=== PATIENT | female | born 1985 | race African-American/Black ===

== ENCOUNTER 2018-06-17 16:48 | Emergency (ER) | payer MEDICAID ==
[~2018-06-17] VITALS: Ht 154.9 cm; Wt 57.6 kg
[2018-06-17 17:15] VITALS: BP 118/92; Ht 154.9 cm; Wt 57.6 kg
== END 2018-06-17 17:53 | disposition home or self-care (01) ==
LOC: ED 16:48
DX: R06.2 Wheezing (principal)
CPT/HCPCS: J7613

== ENCOUNTER 2018-08-28 02:09 | Emergency (ER) | payer SELFPAY ==
[~2018-08-28] VITALS: Ht 157.5 cm; Wt 55.3 kg
[2018-08-28 02:14] VITALS: BP 137/91; Ht 157.5 cm; Wt 55.3 kg
== END 2018-08-28 04:05 | disposition home or self-care (01) ==
LOC: ED 02:09
DX: T74.21XA Adult sexual abuse, confirmed, initial encounter (principal); J45.909 Unspecified asthma, uncomplicated; Z11.3 Encounter for screening for infections with a predominantly sexual mode of transmission
CPT/HCPCS: 87491; 87591

== ENCOUNTER 2018-09-03 18:17 | Emergency (ER) | payer SELFPAY ==
[~2018-09-03] VITALS: Ht 154.9 cm; Wt 54.9 kg
[2018-09-03 18:33] VITALS: BP 119/82; Ht 154.9 cm; Wt 54.9 kg
== END 2018-09-03 20:21 | disposition left against medical advice (07) ==
LOC: ED 18:17
DX: Z53.21 Procedure and treatment not carried out due to patient leaving prior to being seen by health care provider (principal)
CPT/HCPCS: 87491; 87591

== ENCOUNTER 2018-09-29 03:25 | Emergency (ER) | payer SELFPAY ==
[~2018-09-29] VITALS: Ht 154.9 cm; Wt 54.0 kg
[2018-09-29 03:30] VITALS: Ht 154.9 cm; Wt 54.0 kg
[2018-09-29 05:57] VITALS: BP 110/84
== END 2018-09-29 05:57 | disposition home or self-care (01) ==
LOC: ED 03:25
DX: H61.22 Impacted cerumen, left ear (principal); J45.909 Unspecified asthma, uncomplicated